=== PATIENT | male | born 1955 | race Caucasian/White ===

== ENCOUNTER 2025-03-04 02:23 | Day surgery (SDC) | payer MEDICARE, SELFPAY ==
[2025-02-24 15:02] VITALS: BMI 22.4
--- NOTE | 2025-02-24 15:22 | PC.NURSE ---
Report to the Outpatient Waiting Room, entrance under the green pavilion located off [facility], at time __9:45AM___ on date ___03/04/25__. Planned Procedure Time: ___11:45AM___.? Time changes happen often and if your time is changed the preop area will call you the afternoon before. - You and your visitor will be asked to self-screen and do not enter if you have any COVID symptoms. Please call surgeon if you need to reschedule. - A mask is optional within the hospital at this time. PER DR PRIEST, NOTHING BY MOUTH from midnight until time of surgery and no smoking, or chewing tobacco (or any form of nicotine). No chewing gum, candy or mints. Take only the following medications with a SIP of water on the morning of surgery: VERAPAMIL, TIMOLOL. MAY TAKE TRAMADOL NEEDED FOR PAIN DO NOT STOP ANY OF YOUR OTHER PRESCRIPTION MEDICATIONS PRIOR TO SURGERY EXCEPT THE FOLLOWING Hold all vitamins and supplements for 3 days per anesthesiologist. Medications to discontinue per physician ____HOLD ASPIRIN 7 DAYS PRE-OP PER DR PRIEST Date to take last dose 02/24/25 Please no make-up, nail hebrew, hairspray, perfume, deodorant, or body powder the day of surgery.? No jewelry (including any body piercings) or valuables the day of surgery, leave them at home.? Please take a shower or bath the night before, or the morning of, surgery with an antibacterial soap.? Wear comfortable, loose fitting clothing.? BATH OR SHOWER NIGHT BEFORE AND MORNING OF SURGERY PER DR PRIEST. - Jewelry must be removed prior to entering the operating room.? Rings and piercings that are not removed may be cut off. - The hospital will not accept responsibility for valuables.? - Please leave all valuables, including medications, at home the day of surgery. If you are going home after surgery, a licensed diesel pile driver operator must drive you home.? - NO public transportation without another adult if you receive anesthesia. - We recommend that an adult stay with you for 24 hours following discharge. - We also recommend that you do not drive, make important decision, drink alcoholic beverages, or take any drugs that were not prescribed by your health care provider for at least 24 hours after your discharge time. Follow any additional instructions given to you from your surgeon. Telephone instructions given to ____PATIENT and asked if any additional questions and then verbalized understanding. Patient advised to call surgeon office or pre surgery nurse liaison [phone] if any additional questions.
--- NOTE | ~2025-03-04 | XR_ITS ---
Indication: Lumbar decompression TECHNIQUE: Fluoroscopy used during lumbar decompression performed by Dr. Amie Rogers MD on 02/21. 2 minutes 25 seconds. Fluoroscopy with 3 fluoroscopic images captured. FINDINGS: Correlate with procedure note. IMPRESSION: Fluoroscopy used during lumbar decompression. Reviewed, dictated and finalized at location A.
[2025-03-04 09:35] VITALS: BP 142/71; PULSE 54; RESP 18; TEMP 36.5; O2SAT 98
--- NOTE | 2025-03-04 10:13 | PM.HPGS ---
History of Present Illness History of Present Illness Consent: Risks, benefits, and alternatives have been discussed and questions answered. Patient agrees to proceed with procedure. Chief complaint: lumbar stenosis with neurogenic claudication Narrative: Dev Neves is a 69 year old male with chronic, recalcitrant and disabling bilateral low back and lower extremity pain secondary to degenerative spondylosis, lumbar spinal stenosis with neurogenic claudication ligamentum flavum hypertrophy at L3-4 resulting in moderate to severe central stenosis with failure to respond to aggressive conservative measures including PT, oral and topical analgesics, opioid and nonopioid analgesics, rest, time and activity/behavioral modification over the past 1-2 years who presents for minimally invasive lumbar decompression of the bilateral L3-4 Level under fluoroscopic guidance with possible epidurogram. Review of Systems Review of Systems: All systems reviewed & are unremarkable except as noted in HPI and below PMFSH Past Medical History Medical History (Updated 03/04/25 @ 10:15 by Tab Rogers MD) Neurogenic claudication due to lumbar spinal stenosis Trochanteric bursitis of right hip Lumbar stenosis Lumbar spondylosis Lumbar radiculopathy Dorsalgia HTN (hypertension) GERD (gastroesophageal reflux disease) Family History Family History (Updated 01/22/25 @ 13:18 by Ute Chandler MA) Sibling Carcinoma of colon Social History Social History (Updated 01/22/25 @ 13:21 by Ute Chandler MA) Smoking packs per day: 2 Smoking cigarettes per day: 40.0 Years smoked: 40 Smoking pack-years: 80.00 Smoking status: Former smoker Tobacco type: cigarettes Smoking end date: 01/21/17 Alcohol intake: current Drinks per week: 42 Substance use: current Substance use type: marijuana Living arrangements: alone Spiritual care concerns: No Meds Home Medications and Allergies Home Medications ?Medication ?Instructions ?Recorded ?Confirmed ?Type benazepril 40 mg tablet 40 mg PO QAM 01/22/25 03/04/25 History pantoprazole 40 mg tablet,delayed 40 mg PO DAILY 01/22/25 03/04/25 History release pravastatin 80 mg tablet 80 mg PO DAILY 01/22/25 03/04/25 History sodium chloride 1,000 mg soluble 1,000 mg PO BID 01/22/25 03/04/25 History tablet verapamil 240 mg tablet,extended 240 mg PO Q12H 01/22/25 03/04/25 History release aspirin 81 mg tablet,delayed 81 mg PO DAILY 02/24/25 03/04/25 History release (Adult Low Dose Aspirin) timolol maleate 0.5 % eye drops 1 drp LEFT EYE Q12H 02/24/25 03/04/25 History tramadol 50 mg tablet 100 mg PO Q12H PRN pain 02/24/25 02/24/25 History Allergies Allergy/AdvReac Type Severity Reaction Status Date / Time oxycodone (From Percocet) Allergy Unknown ITCHING Verified 03/04/25 09:51 Vital Signs Vital Signs - 24 hr 03/04/25 09:35 Temperature 97.7 F Pulse Rate 54 L Respiratory Rate 18 Blood Pressure 142/71 H Pulse Oximetry 98 Oxygen Delivery Room Air Exam Narrative: The patient's physical exam is essentially unchanged from prior examination on 01/22/2025. Specifically, patient demonstrates normal lung capacity, tidal volume and respiratory rate without wheezes, crackles, rales or rubs. Heart rate and rhythm are regular without murmurs, gallops or rubs. No JVD. Pulses 2+ globally without increasing peripheral edema. AAOx3 with no evidence of confusion, intoxication or altered mental state, NC/AT without acute distress or altered consciousness. Speech, cognition, mood, insight and judgment at baseline and within normal limits. Assessment and Plan Assessment and plan (1) Neurogenic claudication due to lumbar spinal stenosis: Code(s): M48.062 - Spinal stenosis, lumbar region with neurogenic claudication Status: Acute Assessment and Plan: Proceed as planned with minimally invasive lumbar decompression of the bilateral L3-4 Level under fluoroscopic guidance with possible epidurogram. (2) Chronic pain: Code(s): G89.29 - Other chronic pain Status: Acute
--- NOTE | 2025-03-04 10:16 | WPDHPUPDATE1 ---
History and Physical Update Update Date/Time: 03/04/25 10:16 History and Physical has been reviewed, including an updated exam of the patient. There are NO changes in the patient's condition. Risks, benefits, and alternatives have been discussed and questions answered. Patient agrees to proceed with procedure.
--- NOTE | 2025-03-04 10:18 | W.PM.PROC2 ---
Procedure Note - Detailed Date of Procedure 03/04/25 Pre-op Diagnosis lumbar stenosis with neurogenic claudication Post-op Diagnosis Same Procedure Performed [Bilateral] Minimally Invasive Lumbar Decompression (MILD) at [L3-4, L4-5] [with Intra-operative Interlaminar Epidural Access for Epidurogram] under Fluoroscopic Guidance. Surgeon Tab Rogers MD [employer] Assistant Manager None Anesthesia Other ([Moderate IV sedation/MAC] with local anesthetic infiltration in the prone position) Description of Procedure INFORMED CONSENT: Risks, benefits, and alternatives to the procedure were discussed in detail with the patient who expressed explicit understanding and consent to proceed. Risks discussed with the patient included but were not limited to risk of serious local or systemic infection, bleeding/bruising, epidural hematoma, dural puncture or tear resulting in CSF leak and acute or chronic post-dural puncture headache, scarring/deformity, immediate or delayed allergic reaction, decreased mobility, failure to treat pain, inadvertent neurologic injury resulting in increased pain, weakness/paralysis or numbness, inadvertent organ injury, need for additional surgery, allergic reaction, heart attack, stroke, seizure, coma, . Anesthetic risks were also briefly discussed by myself and the printing manager. The patient expressed understanding and consent to proceed, agreeing that potential benefits outweigh risk of harm. All materials required for the procedure were immediately available prior to procedure start. Site and side were confirmed with the patient, compared carefully to the patient chart and consent, and marked prior to transport to the operating room. Appropriate time out procedure was performed per protocol prior to procedure start. PROCEDURE IN DETAIL: The patient was brought to the operative suite and placed in the prone position. Appropriate ASA standard monitors were attached. Anesthesia was initiated without difficulty or event. Eyes were protected. Pressure points were padded with joints in neutral position. When appropriate, breasts and genitals were evaluated and protected. Eyes were checked and were free from undue pressure. Skin overlying the procedure site was marked with sterile marker. Surgical area was prepared in a typical sterile fashion with ChloraPrep and allowed to dry for at least 3 minutes prior to sterilely draping the surgical site. The lumbar spine was identified in the AP fluoroscopic view with slight cephalad tilt perfectly aligning the endplates at the targeted levels with spinous processes bisecting the transpedicular plane. After identifying the intended incision site approximately 1.5 levels inferior to the level of interest, the area was anesthetized by infiltration with no more than 10ml of a 1:1 admixture of 0.5% PF bupivacaine with epinephrine and 2% PF lidocaine with epinepherine via a 27-gauge needle after negative aspiration. A 22-gauge spinal needle was used to provide additional and adequate local anesthesia to the level of the interspinous ligament, ligamentum flavum and the periosteum of the lamina at the intended treatment levels. In the AP view, a #11 scalpel blade was used to create a single stab incision at the intended incision site on the targeted side. The [employer] MILD kit was opened and the included cannula and trocar assembly was advanced through the incision to contact the midportion of the right lamina just adjacent to the spinous process at L4. Once seated, the lateral view was used to gauge depth demonstrating the most anterior tip of the trocar posterior to the epidural space at all times. The production control expert-provided cannula stabilizer was placed over the trocar flush to the patient's lumbar flank. Cannula obturator with handle was removed. Included depth guide was then attached to the insertion port on the cannula and set to an intitial depth of 15 mm. The bone rongeur was advanced to the depth of the lumbar lamina at the targeted level. Depth gauge was then adjusted allowing rongeur tip to advance in the contralateral oblique view to the anterior border of the superior and inferior lamina at the respective intervertebral foramen. Multiple passes of the rongeur were used in the contralateral oblique view to remove single small portions of ligament and bone in a 360-degree distribution, approximately 3-5 passes on each lamina, until appropriate access to the superior and inferior attachments of the ligamentum flavum was created at the surgical level right L3-4. Each individual portion of bone removed was extracted, collected and discarded. Rongeur was removed and replaced with a tissue sculpter which was deployed from inferior to superior in the contralateral oblique view to delaminate the ligamentum flavum at the intended level with serial groupings of three passes each, 6-9 total per side treated. Tissue extracted was discarded. At no point did the rongeur or tissue sculpter violate the anterior border of the ligament as evidenced by intact interface at the ligament/epidural border on epidurogram. The same procedure was repeated in the exact same fashion, utilizing the initial stab incision, to effectively debulk the ligamentum flavum and decompress the central spinal canal on the left at L3-4, with similar results and no evidence of complication. Bone and tissue sculpters were withdrawn, obturator replaced and trocar removed in the lateral view, entirely and without difficulty. Hemostasis was obtained and confirmed. Benzoin was placed around the incision site(s) and Steri-Strips were placed in a kary-crossing fashion across the wound(s), which were then covered with Telfa dressing and Tegaderm. The patient was converted to the supine position and transported to the recovery area having tolerated the procedure well with no evidence of complication. The patient was instructed to minimize weightbearing activity, including ambulation, for 48 hours, and to avoid bending, twisting at the waist, overhead work, reaching and lifting, pushing or pulling greater than 5-10 lbs for 48 hours with subsequent return to normal activity as tolerated. The patient is to maintain current dressing for 48 hours, then can remove the original dressing, leaving steri-strips in place until they come off on their own or are removed by their provider. Once removing the outer bandage, the patient will cover the incision with clean gauze and paper tape as needed, changing daily or when soiled. The patient understands they should avoid soaking or submerging the incision for 1 week and can resume showers after 48 hours. Instructions were provided to the patient in both verbal and written form, which the patient obtained, reviewed and signed prior to discharge. The patient was instructed to watch for signs of infection including fevers, chills, night sweats, severe headache, neck stiffness, new neurologic deficit, bowel or bladder changes, increased pain, discharge, bleeding, swelling, opening of or unusual warmth at the incision site. They are to call our office or report directly to the Emergency Department immediately should there be any signs/symptoms of complications such as the above or any other urgent/emergent changes in their condition. COMMENTS: None. COMPLICATIONS: None. DRAINS/PACKING: None. SPECIMEN: None. ESTIMATED BLOOD LOSS: 10 mL. IV FLUIDS: On chart. CONTRAST WASTED: 0 ml of Isovue 300M. Pathology None sent Complications No immediate complications Condition Stable Disposition PACU [facility] Billing Surgery - Charge Forward: Surgery Billing
--- NOTE | 2025-03-04 10:21 | WPDANESEPPF ---
Anes - Initial Pre Proc Eval Procedure: Operation Date: 03/04/25 11:45 Proposed Procedures p Minimally Invasive Lumbar Decompression Bilateral L3-4 Under Fluoroscopic Guidance, Possible Epidurogram - Tab Rogers MD Date/Time: 03/04/25 10:21 Surgeon: Tab Rogers MD Pre Op Diagnosis: lumbar stenosis with neurogenic claudication Patient Data Age: 69 Gender: M Height: 1.78 m Weight: 70.1 kg Last Vital Signs Temp 97.7 F 03/04/25 09:35 Pulse 54 L 03/04/25 09:35 Resp 18 03/04/25 09:35 BP 142/71 H 03/04/25 09:35 Pulse Ox 98 03/04/25 09:35 O2 Del Method Room Air 03/04/25 09:35 Allergies Allergy/AdvReac Type Severity Reaction Status Date / Time oxycodone (From Percocet) Allergy Unknown ITCHING Verified 03/04/25 09:51 Home Medications ?Medication ?Instructions ?Recorded ?Confirmed ?Type benazepril 40 mg tablet 40 mg PO QAM 01/22/25 03/04/25 History pantoprazole 40 mg tablet,delayed 40 mg PO DAILY 01/22/25 03/04/25 History release pravastatin 80 mg tablet 80 mg PO DAILY 01/22/25 03/04/25 History sodium chloride 1,000 mg soluble 1,000 mg PO BID 01/22/25 03/04/25 History tablet verapamil 240 mg tablet,extended 240 mg PO Q12H 01/22/25 03/04/25 History release aspirin 81 mg tablet,delayed 81 mg PO DAILY 02/24/25 03/04/25 History release (Adult Low Dose Aspirin) timolol maleate 0.5 % eye drops 1 drp LEFT EYE Q12H 02/24/25 03/04/25 History tramadol 50 mg tablet 100 mg PO Q12H PRN pain 02/24/25 02/24/25 History Patient hx anesthesia problems: none Family hx anesthesia problems: none Results Review: All pre-operative results and documents have been reviewed as part of the pre-operative evaluation. [facility] Past Medical History Medical History Neurogenic claudication due to lumbar spinal stenosis Trochanteric bursitis of right hip Lumbar stenosis Lumbar spondylosis Lumbar radiculopathy Dorsalgia HTN (hypertension) GERD (gastroesophageal reflux disease) Family History Family History Sibling Carcinoma of colon Social History Social History Smoking packs per day: 2 Smoking cigarettes per day: 40.0 Years smoked: 40 Smoking pack-years: 80.00 Smoking status: Former smoker Tobacco type: cigarettes Smoking end date: 01/21/17 Alcohol intake: current Drinks per week: 42 Substance use: current Substance use type: marijuana Living arrangements: alone Spiritual care concerns: No Anes - Eval Final PreProcedure Day of Procedure 03/04/25 10:21 Patient weight: normal Lungs: normal air movement Airway: Mallampati scale class II Neurological: alert and oriented Last oral intake: >/= 8 hours ASA classification: III Emergent: no Anesthetic plan: proceed Anesthesia type and monitoring: general GIVS and standard monitoring Results Review: All pre-operative results and documents have been reviewed as part of the pre-operative evaluation. HTN, hyperlipidemia, smokes marijuana daily. Informed Consent: The patient's anesthetic plan and its attendant risks and benefits were discussed with the patient/family/POA. Questions were solicited and answers provided to the satisfaction of the patient/family/POA.
[2025-03-04] MEDS: ceFAZolin 2 GM in SODIUM CHLORIDE 0.9% IV 50 ML 100 ML IVPB (10:24)
[2025-03-04] MEDS: BUPIVACAINE/EPINEPHRINE 0.5% 30 ML VIAL 10 ML INFILTRATE (10:37)
[2025-03-04] MEDS: LIDOCAINE 1% LOCAL INJ 20 ML VIAL 10 ML INFILTRATE (10:39)
[2025-03-04 11:02] VITALS: BP 130/65; PULSE 50; RESP 16; O2SAT 98
[2025-03-04] MEDS: LACTATED RINGERS 1,000 ML 30 ML IV CONT (11:02)
[2025-03-04 11:30] VITALS: BP 117/62; PULSE 50; RESP 16
[2025-03-04 12:00] VITALS: BP 141/70; PULSE 50; RESP 16
== END 2025-03-04 12:12 | disposition home or self-care (01) ==
PROVIDERS: Visit Provider Anesthesiology Pain Medicine
PROC: (CPT 0275T; principal; 2025-03-04 11:45)
DX: M48.062 Spinal stenosis, lumbar region with neurogenic claudication (principal); G89.29 Other chronic pain; I10 Essential (primary) hypertension; K21.9 Gastro-esophageal reflux disease without esophagitis; F12.90 Cannabis use, unspecified, uncomplicated; Z00.6 Encounter for examination for normal comparison and control in clinical research program; Z79.82 Long term (current) use of aspirin; Z79.891 Long term (current) use of opiate analgesic; Z87.891 Personal history of nicotine dependence; Z80.0 Family history of malignant neoplasm of digestive organs
CPT/HCPCS: 0275T; 99199; J0690; C1889; J2003; J2250; J2704; J3010; J7120